=== PATIENT | female | born 1955 | race Caucasian/White ===

== ENCOUNTER 2019-06-06 06:35 | Day surgery (SDC) | payer OTHER ==
[~2019-06-06 06:35] MED LIST: NEURONTIN300 MG
== END 2019-06-06 18:00 | disposition home or self-care (01) ==
LOC: CIR.AMB 06:35
DX: D36.12 Benign neoplasm of peripheral nerves and autonomic nervous system, upper limb, including shoulder (principal)

== ENCOUNTER 2025-02-13 06:15 | Day surgery (SDC) | payer OTHER ==
[2025-02-06 08:51] VITALS: BP 143/78
[2025-02-06 09:28] LABS: EOS # 0.20 (0.04-0.54); EOS % 4.5 % (0.7-7.0); LYMPH # 1.38 (1.18-3.74); LYMPH % 31.2 % (19.3-53.1); MEAN PLATELET VOLUME 11.40 fl (9.4-12.4); MONO # 0.35 (0.24-0.82); MONO % 7.9 % (4.7-12.5); NEUT # 2.38 (1.56-6.13); NEUT % 53.9 % (34.0-71.1); RED CELL DISTRIBUTION WIDTH 14.7 % (11.6-14.4)
[2025-02-06 09:31] LABS: BASO % 2.3 % (0.1-1.2)
[2025-02-06 09:32] LABS: URINE APPEARANCE Clear; URINE BILIRRUBIN Negative (NEGATIVE); URINE BLOOD Negative; URINE COLOR Yellow; URINE GLUCOSE Negative (NEGATIVE); URINE KETONE Negative (NEGATIVE); URINE LEUKOCYTE Trace; URINE NITRATE Negative; URINE PROTEIN Trace (NEGATIVE); URINE UROBILINOGEN 1.0 E.U./dl
[2025-02-06 09:37] LABS: URINE BACTERIA 34.7 uL (0.0-1933); URINE EPITHELIAL CELLS 11.5 uL (0.0-38.8); URINE RBC 6.3 uL (0.0-20.8); URINE WBC 12.2 uL (0.0-23.2)
[2025-02-06 09:43] LABS: URINE CAST 0.29 uL (0.0-1.40)
[2025-02-06 09:53] LABS: INR 1.05
[2025-02-06 10:55] LABS: ALT/SGPT 20.0 U/L (12-78); AST/SGOT 20.0 U/L (15-37); BILIRUBIN TOTAL 0.61 mg/dL (0.3-1.2); BUN CREA RATIO 14.0 (7.0-25.0); CREATININE SERUM 0.65 mg/dL (0.55-1.02); GFR 90.37; GLOBULINA 3.0 G/DL (2.4-3.5); GLUCOSE FASTING 79.0 mg/dL (65-100); OSMOLALITY SERUM 284.0 MOSM/KG (275-295)
[~2025-02-13] VITALS: Ht 152.4 cm; Wt 46.3 kg
[~2025-02-13 06:15] MED LIST changes: +CYMBALTA60 MG PO; +ZESTRIL5 MG PO
[2025-02-13] MEDS ORDERED: BUPIVACAINE HCL 30 ML VIAL IJ ONE (13:00)
[2025-02-13] MEDS ORDERED: CEFAZOLIN SODIUM 1,000 MG VIAL IV SCH (13:00)
[2025-02-13] MEDS ORDERED: SUGAMMADEX SODIUM 200 MG/2 ML VIAL IV ONE (13:15)
[2025-02-13] MEDS ORDERED: MORPHINE SULFATE 4 MG/ML VIAL IV ONE ×2 (14:05→15:30)
[2025-02-13] MEDS ORDERED: ONDANSETRON HCL 2 MG/ML VIAL IV ONE (14:45)
== END 2025-02-13 17:40 | disposition home or self-care (01) ==
LOC: CIR.AMB 06:15
PROVIDERS: ATTEND Orthopaedic Surgery Hand Surgery
DX: D36.12 Benign neoplasm of peripheral nerves and autonomic nervous system, upper limb, including shoulder (principal); R22.31 Localized swelling, mass and lump, right upper limb